=== PATIENT | female | born 1990 | race African-American/Black ===

== ENCOUNTER 2016-05-09 20:54 | Emergency (ER) | payer OTHER ==
[~2016-05-09] VITALS: Ht 162.6 cm; Wt 68.0 kg
[~2016-05-09 20:54] MED LIST: NKM; ROBAXIN-750750 MG PO
[2016-05-09 21:05] VITALS: BP 142/88
[2016-05-09] MEDS ORDERED: Phenazopyridine 200mg tab ORAL ONE (21:15)
--- NOTE | 2016-05-09 21:24 | Emergency Room Report ---
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 She felt a strain in her right shoulder with increased pain. She's had a history of tendinitis in her past. The pain radiates around to her back and slightly up towards the neck. She denies any numbness. The pain is 9/10. Worsened when she moves her arm. 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 She drove herself here. No fevers, chest pain, dyspnea, NVD, neck pain. Allergies: Coded Allergies: PENICILLINS (Verified Allergy, rash, 08/28/12) Patient History Past Medical History: see triage record Social History: Denies: smoking Social History Narrative patient care Last Menstrual Period: 05/09/2016 Now: No : 0 Para: 0 Nursing Documentation-PMH Past Medical History: No Stated History Review of Systems All Other Systems: negative except mentioned in HPI Physical Exam Vital Signs Date Time Temp Pulse Resp B/P Pulse Ox O2 Delivery O2 Flow Rate FiO2 05/09/16 20:56 98.1 84 16 142/88 100 Room Air Sp02 EP Interpretation: reviewed, normal General Appearance: well appearing, no apparent distress, GCS 15 Head: normocephalic, atraumatic Eyes: bilateral eye PERRL, bilateral eye normal inspection ENT: hearing grossly normal, normal voice Neck: full range of motion, supple Respiratory: chest non-tender, no respiratory distress, speaking full sentences Cardiovascular #2: 2+ radial (R) Musculoskeletal: decreased range of mation - R shoulder - unable to lift to breast height or adduct. No elbow tenderness. No deformity. No AC joint pain Neurologic: alert, motor strength/tone normal, DTRs symmetric, sensory intact, normal gait, speech normal Psychiatric: mood/affect normal Reflexes: 2+ bicep (R) Skin: no rash Medical Decision Making Diagnostic Impression: Primary Impression: Right shoulder strain Qualified Codes: S46.911A - Strain of unspecified muscle, fascia and tendon at shoulder and upper arm level, right arm, initial encounter ER Course Patient presents with R shoulder pain. Ddx; sprain, strain, bursitis. Exam against fx or dislocation. Some suggestion of rotator cuff issue. Needs analgesia. X rays not indicated due to mechanism of injury and exam. Sling applied by tech. Position good and neurovasc normal per my exam. Improved with sling. Improved with treatment. Insisting on time off of work instead of limited work. Patient stable for outpatient observation and treatment. Last Vital Signs Date Time Temp Pulse Resp B/P Pulse Ox O2 Delivery O2 Flow Rate FiO2 05/09/16 22:04 98.1 84 16 142/88 100 Room Air Status: improved Disposition: HOME, SELF-CARE Condition: Improved Scripts Tramadol Hcl* (ULTRAM*) 50 Mg Tablet 50 MG ORAL Q6H Y for For Pain, #10 TAB 0 Refills Prov: Samson Emanuel M.D. 05/09/16 Ibuprofen* (MOTRIN*) 600 Mg Tablet 600 MG ORAL Q6H Y for For Pain, #20 TAB Prov: Samson Emanuel M.D. 05/09/16 Samson Emanuel M.D. May 09, 2016 21:24
[2016-05-09] MEDS ORDERED: TRAMADOL HCL50 MG ORAL (21:26)
[2016-05-09] MEDS ORDERED: IBUPROFEN600 MG ORAL (21:26)
[2016-05-09] MEDS ORDERED: Ketorolac 60mg Inj IM ONE (21:30)
[2016-05-09 22:04] VITALS: BP 142/88
== END 2016-05-09 22:05 | disposition home or self-care (01) ==
LOC: EMR 21:15
DX: S46.911A Strain of unspecified muscle, fascia and tendon at shoulder and upper arm level, right arm, initial encounter (principal); X58.XXXA Exposure to other specified factors, initial encounter; Y93.9 Activity, unspecified; Y92.9 Unspecified place or not applicable; Z88.0 Allergy status to penicillin
CPT/HCPCS: 29240; 96372; 99283

== ENCOUNTER 2016-08-07 12:41 | Emergency (ER) | payer OTHER ==
[~2016-08-07] VITALS: Ht 162.6 cm; Wt 68.0 kg
[~2016-08-07 12:41] MED LIST changes: +IBUPROFEN600 MG ORAL; +TRAMADOL HCL50 MG ORAL
[2016-08-07] MEDS ORDERED: [UNRECOGNIZED DRUG - REMARK] (12:47)
[2016-08-07] MEDS ORDERED: Ketorolac 60mg Inj IM ONE (13:00)
--- NOTE | 2016-08-07 13:06 | Emergency Room Report ---
History of Present Illness General Chief Complaint: Lower Back Pain or Injury Source: Patient Present Illness HPI 26 YO Female presents to the ED c/o Left-sided low back pain that shoots down the leg x 2 day(s), acute onset after strenuous activity. denies N/V/F/C , no hx of neoplastic disease. Denies trauma or fall. Patient denies paresthesias in the lower extremities she states that with certain movements or laying flat pain will shoot down into the left buttock intermittently. Denies erythema, bruising, or increased temperature.Denies abdominal pain, , dysuria, hematuria, or frequency. Denies numbness tingling or loss of sensation or gross motor movements of the extremities, incontinence of bowel or bladder. Denies CP , Palpitations, LOC, AMS, dizziness, Changes in Vision, Sensation, paresthesias , or a sudden severe headache. Allergies: Coded Allergies: PENICILLINS (Verified Allergy, rash, 08/28/12) Patient History Past Medical History: see triage record Past Surgical History: none Pertinent Family History: none Last Menstrual Period: 07/28/16 Now: No Reviewed Nursing Documentation: PMH: Agreed, PSxH: Agreed Nursing Documentation-PMH Past Medical History: No Stated History Review of Systems All Other Systems: negative except mentioned in HPI Physical Exam Vital Signs Date Time Temp Pulse Resp B/P Pulse Ox O2 Delivery O2 Flow Rate FiO2 08/07/16 12:43 98.2 80 16 143/84 100 Sp02 EP Interpretation: reviewed, normal General Appearance: no apparent distress, alert, GCS 15, non-toxic Head: normocephalic, atraumatic Eyes: bilateral eye PERRL, bilateral eye normal inspection ENT: hearing grossly normal, normal pharynx, no angioedema, normal voice Neck: full range of motion, supple/symm/no masses Respiratory: chest non-tender, lungs clear, normal breath sounds, speaking full sentences Cardiovascular #1: regular rate, rhythm, no edema Musculoskeletal: back normal, gait/station normal, normal range of motion, tender - left sided lumbar ttp, left upper gluteal ttp, FROM with pain, unable to tolerate lying flat or straight leg raise. Neurologic: alert, oriented x3, responsive, motor strength/tone normal, sensory intact, speech normal Psychiatric: judgement/insight normal, memory normal, mood/affect normal Skin: normal color, no rash, warm/dry, well hydrated Medical Decision Making PA Attestation Dr. Estrella is my supervising Physician whom patient management has been discussed with. Diagnostic Impression: Primary Impression: Low back pain with sciatica Qualified Codes: M54.42 - Lumbago with sciatica, left side ER Course Pt. presents to the ED c/o Left-sided low back pain that shoots down the leg x 2 day(s), acute onset after strenuous activity. denies N/V/F/C , no hx of neoplastic disease. Ddx considered but are not limited to Fracture, dislocation, contusion, epidural abscess, Sprain/Strain/Spasm Vital signs: are WNL, pt. is afebrile H&PE are most consistent with sciatica - Pt. unable to tolerate straight leg raise. ORDERS: X-ray not required at this time, no spinous process tenderness ED INTERVENTIONS: -IM Toradol 45mg. - 350mg Soma PO Re-Evaluation: pt. states her pain has subsided with ED interventions -I do not suspect an emergent condition at this time. with current presentation pt. is stable for close outpatient follow up. d/w pt. follow up instructions, and ED return precautions. DISCHARGE: At this time pt. is stable for d/c to home. Will provide printed patient care instructions, and any necessary prescriptions. Care plan and follow up instructions have been discussed with the patient prior to discharge. Last Vital Signs Date Time Temp Pulse Resp B/P Pulse Ox O2 Delivery O2 Flow Rate FiO2 08/07/16 12:43 98.2 80 16 143/84 100 Disposition: HOME, SELF-CARE Condition: Stable Departure Forms: Return to Work Return to Work Date: Aug 11, 2016 Work Restrictions: No Heavy Lifting, No Prolonged Standing Other Restrictions: light duty x 1 week. Return to Full Activity: Aug 18, 2016 Patient Instructions: Lumbosacral Strain Additional Instructions: Take medications as directed. Follow up with PCP in 3-5 days Return sooner to ED if new symptoms occur, or current symptoms become worse. Do not drink alcohol, drive, or operate heavy machinery while taking muscle relaxers as this may cause drowsiness. - Please note that this Emergency Department Report was dictated using [employer] consultant technology software, occasionally this can lead to erroneous entry secondary to interpretation by the dictation equipment. Sue Chaidez Aug 07, 2016 13:06
[2016-08-07] MEDS ORDERED: CYCLOBENZAPRINE10 MG ORAL (13:16)
[2016-08-07] MEDS ORDERED: IBUPROFEN600 MG ORAL (13:16)
[2016-08-07 13:36] VITALS: BP 139/83
== END 2016-08-07 13:37 | disposition home or self-care (01) ==
LOC: EMR 13:27
DX: M54.42 Lumbago with sciatica, left side (principal); Z88.0 Allergy status to penicillin
CPT/HCPCS: 96372; 99283

== ENCOUNTER 2016-11-10 12:10 | Emergency (ER) | payer OTHER ==
[~2016-11-10] VITALS: Ht 165.1 cm; Wt 59.0 kg
[~2016-11-10 12:10] MED LIST changes: +CYCLOBENZAPRINE10 MG ORAL; +[UNRECOGNIZED DRUG - REMARK]
--- NOTE | 2016-11-10 12:24 | Emergency Room Report ---
History of Present Illness General Chief Complaint: Upper Respiratory Illness Source: Patient (Sue Chaidez) Present Illness HPI 26-year-old female presents to the emergency department complaining of body aches, fevers, sore throat, dry cough, nasal congestion, and nausea since yesterday. Patient reports generalized malaise she denies chills. Reports moderate nasal congestion. Patient also reports intermittent 5/10 headache that is dull and progressive onset. Patient denies episodes of vomiting. She has been around many ill persons. Patient states she is up-to-date with vaccinations. Denies abdominal pain denies abdominal tenderness denies rash. Denies neck pain or stiffness. Patient states she's been taking Tylenol for fevers. Denies CP, Palpitations, LOC, AMS, dizziness, Changes in Vision, Sensation, paresthesias, or a sudden severe headache. (Sue Chaidez) Allergies: Coded Allergies: PENICILLINS (Verified Allergy, rash, 08/28/12) Patient History Past Medical History: see triage record Past Surgical History: none Pertinent Family History: none Now: No Immunizations: UTD Reviewed Nursing Documentation: PMH: Agreed, PSxH: Agreed (Sue Chaidez) Nursing Documentation-PMH Past Medical History: No Stated History (Sue Chaidez) Review of Systems All Other Systems: negative except mentioned in HPI (Sue Chaidez) Physical Exam Vital Signs Date Time Temp Pulse Resp B/P (MAP) Pulse Ox O2 Delivery O2 Flow Rate FiO2 11/10/16 12:18 98.2 86 18 120/80 98 Room Air Sp02 EP Interpretation: reviewed, normal General Appearance: no apparent distress, alert, GCS 15, non-toxic Head: normocephalic, atraumatic Eyes: bilateral eye normal inspection, bilateral eye PERRL ENT: hearing grossly normal, normal pharynx, normal voice, TMs + canals normal , uvula midline, moist mucus membranes, nasal congestion, pharyngeal erythema Neck: full range of motion, no meningismus, no bony tend, supple/symm/no masses Respiratory: lungs clear, normal breath sounds, no wheezing, speaking full sentences Cardiovascular #1: regular rate, rhythm Gastrointestinal: normal bowel sounds, non tender, soft, no guarding, no rebound Rectal: deferred Genitourinary: normal inspection, no CVA tenderness Musculoskeletal: gait/station normal, normal range of motion, non-tender Neurologic: alert, oriented x3, responsive, motor strength/tone normal, sensory intact, speech normal Psychiatric: judgement/insight normal, memory normal, mood/affect normal Skin: normal color, no rash, warm/dry, well hydrated Lymphatic: no adenopathy (Sue Chaidez) Medical Decision Making PA Attestation Dr. Nunez is my supervising Physician whom patient management has been discussed with. (Sue Chaidez) Diagnostic Impression: Primary Impression: Upper respiratory infection Qualified Codes: J06.9 - Acute upper respiratory infection, unspecified; B97.89 - Other viral agents as the cause of diseases classified elsewhere Additional Impressions: Gastritis Qualified Codes: K29.00 - Acute gastritis without bleeding UTI (urinary tract infection) Qualified Codes: N30.00 - Acute cystitis without hematuria ER Course 26-year-old female presents to the emergency department complaining of body aches, fevers, sore throat, dry cough, nasal congestion, and nausea since yesterday. Patient reports generalized malaise she denies chills. Reports moderate nasal congestion. Patient also reports intermittent 5/10 headache that is dull and progressive onset. Patient denies episodes of vomiting. She has been around many ill persons. Patient states she is up-to-date with vaccinations. Denies abdominal pain denies abdominal tenderness denies rash. Denies neck pain or stiffness. Patient states she's been taking Tylenol for fevers. Denies CP, Palpitations, LOC, AMS, dizziness, Changes in Vision, Sensation, paresthesias, or a sudden severe headache. Ddx considered but are not limited to URI, pneumonia, PE, strep pharyngitis, meningitis., Viral GE, just to name a few Vital signs: Pt. is afebrile, the remaining VS are WNL H&PE are most consistent with Viral syndrome - no meningeal signs, oropharynx is not involved, no evidence of bacterial infection at this time. Will check urine for UTI and due to nausea and STERLING's. ORDERS: -UA: NItrite positive, moderate bacteria and elevated leukocytes indicating UTI. -Urine Hcg: Negative ED INTERVENTIONS: None required at this time. DISCHARGE: At this time pt. is stable for d/c to home. Will provide printed patient care instructions, and any necessary prescriptions. Care plan and follow up instructions have been discussed with the patient prior to discharge. Labs Test 11/10/16 12:36 Urine Color Yellow Urine Appearance Slightly cloudy Urine pH 5 (4.5-8.0) Urine Specific [place] 1.020 (1.005-1.035) Urine Protein 1+ (NEGATIVE) Urine Glucose (UA) Negative (NEGATIVE) Urine Ketones Negative (NEGATIVE) Urine Occult Blood 5+ (NEGATIVE) Urine Nitrite Positive (NEGATIVE) Urine Bilirubin Negative (NEGATIVE) Urine Urobilinogen Normal MG/DL (0.0-1.0) Urine Leukocyte Esterase 2+ (NEGATIVE) Urine RBC 15-20 /HPF (0 - 2) Urine WBC 2-4 /HPF (0 - 2) Urine Squamous Epithelial Cells Few /LPF (NONE/OCC) Urine Bacteria Moderate /HPF (NONE) Urine HCG, Qualitative Negative (Sue Chaidez P.AMilady) ER Course Culture growing Escherichia coli, sensitive to Macrobid, already prescribed to the patient (Oleksandr Nunez M.D.) Last Vital Signs Date Time Temp Pulse Resp B/P (MAP) Pulse Ox O2 Delivery O2 Flow Rate FiO2 11/10/16 12:18 98.2 86 18 120/80 98 Room Air (Sue Chaidez.Juice) Disposition: HOME, SELF-CARE Condition: Stable Scripts Nitrofurantoin Monohyd/M-Cryst* (MACROBID 100 MG*) 100 Mg Capsule 100 MG ORAL EVERY 12 HOURS for 5 Days, #10 CAP Prov: Sue Chaidez 11/10/16 Acetaminophen* (TYLENOL EXTRA STRENGTH*) 500 Mg Tablet 500 MG ORAL Q6H Y for Mild Pain/Temp > 100.5, #20 TAB 0 Refills Prov: Sue Chaidez.AMilady 11/10/16 Pseudoephedrine Hcl* (NEXAFED*) 30 Mg Tablet 30 MG ORAL Q6H Y for congestion, #20 TAB Prov: Sue Chaidez P.A. 11/10/16 Guaifenesin (Guaifenesin) 1,200 Mg Tab.er.12h 1200 MG PO BID for 10 Days, #20 TAB Prov: Sue Chaidez.AMilady 11/10/16 Ondansetron Odt* (ZOFRAN ODT*) 4 Mg Tab.rapdis 4 MG ORAL Q6H Y for Nausea & Vomiting, #20 TAB Prov: Sue Chaidez 11/10/16 Codeine/Promethazine Hcl* (PROMETHAZINE-CODEINE SYRUP*) 118 Ml Syrup 5 ML ORAL Q6H Y for For Cough, #118 ML 0 Refills Prov: Sue Chaidez 11/10/16 Patient Instructions: Upper Respiratory Infection, Adult Additional Instructions: Take medications as directed. Follow up with a Primary Care Provider in 3-5 days, even if your symptoms have resolved. --Please review list of primary care clinics, if you do not already have a primary care provider Return sooner to ED if new symptoms occur, or current symptoms become worse. Do not drink alcohol, drive, or operate heavy machinery while taking cough syrup as this may cause drowsiness. - Please note that this Emergency Department Report was dictated using [employer] floor [employer]ander technology software, occasionally this can lead to erroneous entry secondary to interpretation by the dictation equipment. Sue Chaidez Nov 10, 2016 12:24 Oleksandr Nunez M.D. Nov 13, 2016 04:47
[2016-11-10 12:45] VITALS: BP 122/83
[2016-11-10 13:03] LABS: KETONES,URINE NEGATIVE (NEGATIVE); LEUKOCYTE ESTERASE ,URINE 2+ (NEGATIVE); NITRITE,URINE POSITIVE (NEGATIVE); PH,URINE 5 (4.5-8.0); PROTEIN,URINE 1+ (NEGATIVE); UROBILINOGEN,URINE NORMAL MG/DL (0.0-1.0)
[2016-11-10] MEDS ORDERED: GUAIFENESIN1200 MG PO (13:12)
[2016-11-10] MEDS ORDERED: ZOFRAN ODT4 MG ORAL (13:12)
[2016-11-10] MEDS ORDERED: NEXAFED30 MG ORAL (13:12)
[2016-11-10] MEDS ORDERED: PROMETHAZINE-C118 M1 ORAL (13:12)
[2016-11-10] MEDS ORDERED: TYLENOL EXTRA500 MG ORAL (13:12)
[2016-11-10 13:13] LABS: APPEARANCE,URINE SLIGHTLY CLOUDY; BACTERIA,URINE MODERATE /HPF; RBC,URINE 15-20 /HPF (0 - 2); SQUAMOUS EPITHELIAL CELL,UR FEW /LPF (NONE/OCC)
[2016-11-10] MEDS ORDERED: NITROFURANTOIN100 M2 ORAL (13:26)
[2016-11-10 13:44] VITALS: BP 122/83
== END 2016-11-10 13:45 | disposition home or self-care (01) ==
LOC: EMR 12:50
DX: J06.9 Acute upper respiratory infection, unspecified (principal); K29.00 Acute gastritis without bleeding; N30.00 Acute cystitis without hematuria; R51 Headache; Z88.0 Allergy status to penicillin
CPT/HCPCS: 81003; 81025; 87086; 87181; 99284

== ENCOUNTER 2017-01-02 06:57 | Emergency (ER) | payer OTHER ==
[~2017-01-02] VITALS: Ht 162.6 cm; Wt 71.7 kg
[~2017-01-02 06:57] MED LIST changes: +GUAIFENESIN1200 MG PO; +NEXAFED30 MG ORAL; +NITROFURANTOIN100 M2 ORAL; +PROMETHAZINE-C118 M1 ORAL; +TYLENOL EXTRA500 MG ORAL; +ZOFRAN ODT4 MG ORAL
[2017-01-02 07:36] VITALS: BP 126/82
[2017-01-02 07:52] LABS: APPEARANCE,URINE CLOUDY; BILIRUBIN, URINE NEGATIVE (NEGATIVE); COLOR,URINE PALE YELLOW; GLUCOSE, URINE (UA) NEGATIVE (NEGATIVE); KETONES,URINE NEGATIVE (NEGATIVE); LEUKOCYTE ESTERASE ,URINE 3+ (NEGATIVE); NITRITE,URINE NEGATIVE (NEGATIVE); PH,URINE 7 (4.5-8.0); PROTEIN,URINE 1+ (NEGATIVE); UROBILINOGEN,URINE NORMAL MG/DL (0.0-1.0)
[2017-01-02] MEDS ORDERED: METROGEL-VAGINA70 G1 VAGIN (07:58)
[2017-01-02 08:13] VITALS: BP 126/82
--- NOTE | 2017-01-02 09:15 | Emergency Room Report ---
History of Present Illness General Chief Complaint: Vaginal Source: Patient Present Illness HPI Patient presents with complaints of vaginal discharge she reports a kelly discharge There is a somewhat foul smell to it as well Patient felt that it was possibly yeast infection Treatment for that has not improved her symptoms Patient is sexually active Has one partner Denies any pelvic pain denies any dysuria frequency Denies any fevers or chills Allergies: Coded Allergies: PENICILLINS (Verified Allergy, rash, 08/28/12) Patient History Past Medical History: see triage record Pertinent Family History: none Last Menstrual Period: Dec Reviewed Nursing Documentation: PMH: Agreed, PSxH: Agreed Nursing Documentation-PMH Past Medical History: No Stated History Review of Systems All Other Systems: negative except mentioned in HPI Physical Exam Vital Signs Date Time Temp Pulse Resp B/P (MAP) Pulse Ox O2 Delivery O2 Flow Rate FiO2 01/02/17 07:04 97.9 83 16 126/82 98 Room Air Sp02 EP Interpretation: reviewed, normal General Appearance: well appearing, no apparent distress Head: normocephalic, atraumatic Eyes: bilateral eye PERRL, bilateral eye EOMI ENT: hearing grossly normal, normal pharynx, TMs + canals normal, uvula midline Neck: full range of motion, supple, no meningismus, no bony tend Respiratory: lungs clear, normal breath sounds, no rhonchi, no respiratory distress, no retraction, no accessory muscle use Cardiovascular #1: normal peripheral pulses, regular rate, rhythm, no edema, no gallop, no JVD, no murmur Gastrointestinal: normal bowel sounds, non tender, soft, no mass, no organomegaly, non-distended, no guarding, no hernia, no pulsatile mass, no rebound Genitourinary: no CVA tenderness, other - Pelvic exam with speculum reveals grayish discharge, no other laceration or retained products is seen Neurologic: oriented x3, responsive, community service coordinator III-XII nml as tested, motor strength/ tone normal, sensory intact Psychiatric: mood/affect normal Skin: normal color, no rash, warm/dry, palpation normal Lymphatic: normal inspection, no adenopathy Medical Decision Making Diagnostic Impression: Primary Impression: vaginitis ER Course Patient has clinical exam and evaluation in line with likely vaginitis Patient requires gynecology followup for further culture and outpatient reevaluation At this time patient symptomatically treated for this clinical finding And will have close followup Labs Test 01/02/17 07:10 Urine Color Pale yellow Urine Appearance Cloudy Urine pH 7 (4.5-8.0) Urine Specific [place] 1.010 (1.005-1.035) Urine Protein 1+ (NEGATIVE) Urine Glucose (UA) Negative (NEGATIVE) Urine Ketones Negative (NEGATIVE) Urine Occult Blood 1+ (NEGATIVE) Urine Nitrite Negative (NEGATIVE) Urine Bilirubin Negative (NEGATIVE) Urine Urobilinogen Normal MG/DL (0.0-1.0) Urine Leukocyte Esterase 3+ (NEGATIVE) Urine RBC 20-30 /HPF (0 - 2) Urine WBC 60-80 /HPF (0 - 2) Urine Squamous Epithelial Cells Few /LPF (NONE/OCC) Urine Bacteria Moderate /HPF (NONE) Urine Trichomonas Few /HPF (NONE) Urine HCG, Qualitative Negative Last Vital Signs Date Time Temp Pulse Resp B/P (MAP) Pulse Ox O2 Delivery O2 Flow Rate FiO2 01/02/17 08:13 97.9 16 126/82 98 Room Air 01/02/17 07:04 83 Status: improved Disposition: HOME, SELF-CARE Condition: Stable Scripts Metronidazole* (METROGEL-VAGINAL*) 70 Gm Gel.w.appl 1 APPL VAGIN EVERY 12 HOURS, #70 GM Prov: GALINA BETANCOURT D.O. 01/02/17 Referrals: [facility],REFERRING (PCP) Patient Instructions: Vaginitis, [id number] Additional Instructions: Patient is provided with the discharge instructions notified to follow up with primary doctor in the next 2-3 days otherwise return to the er with any worsening symptoms. Please note that this report is being documented using [employer] technology. This can lead to erroneous entry secondary to incorrect interpretation by the dictating instrument. GALINA BETANCOURT D.O. Jan 02, 2017 09:15
--- NOTE | 2017-01-02 09:15 | Emergency Room Report ---
History of Present Illness General Chief Complaint: Vaginal Source: Patient Present Illness HPI Patient presents with complaints of vaginal discharge she reports a kelly discharge There is a somewhat foul smell to it as well Patient felt that it was possibly yeast infection Treatment for that has not improved her symptoms Patient is sexually active Has one partner Denies any pelvic pain denies any dysuria frequency Denies any fevers or chills Allergies: Coded Allergies: PENICILLINS (Verified Allergy, rash, 08/28/12) Patient History Past Medical History: see triage record Pertinent Family History: none Last Menstrual Period: Dec Reviewed Nursing Documentation: PMH: Agreed, PSxH: Agreed Nursing Documentation-PMH Past Medical History: No Stated History Review of Systems All Other Systems: negative except mentioned in HPI Physical Exam Vital Signs Date Time Temp Pulse Resp B/P (MAP) Pulse Ox O2 Delivery O2 Flow Rate FiO2 01/02/17 07:04 97.9 83 16 126/82 98 Room Air Sp02 EP Interpretation: reviewed, normal General Appearance: well appearing, no apparent distress Head: normocephalic, atraumatic Eyes: bilateral eye PERRL, bilateral eye EOMI ENT: hearing grossly normal, normal pharynx, TMs + canals normal, uvula midline Neck: full range of motion, supple, no meningismus, no bony tend Respiratory: lungs clear, normal breath sounds, no rhonchi, no respiratory distress, no retraction, no accessory muscle use Cardiovascular #1: normal peripheral pulses, regular rate, rhythm, no edema, no gallop, no JVD, no murmur Gastrointestinal: normal bowel sounds, non tender, soft, no mass, no organomegaly, non-distended, no guarding, no hernia, no pulsatile mass, no rebound Genitourinary: no CVA tenderness, other - Pelvic exam with speculum reveals grayish discharge, no other laceration or retained products is seen Neurologic: oriented x3, responsive, health safety specialist III-XII nml as tested, motor strength/ tone normal, sensory intact Psychiatric: mood/affect normal Skin: normal color, no rash, warm/dry, palpation normal Lymphatic: normal inspection, no adenopathy Medical Decision Making Diagnostic Impression: Primary Impression: vaginitis ER Course Patient has clinical exam and evaluation in line with likely vaginitis Patient requires gynecology followup for further culture and outpatient reevaluation At this time patient symptomatically treated for this clinical finding And will have close followup Labs Test 01/02/17 07:10 Urine Color Pale yellow Urine Appearance Cloudy Urine pH 7 (4.5-8.0) Urine Specific [place] 1.010 (1.005-1.035) Urine Protein 1+ (NEGATIVE) Urine Glucose (UA) Negative (NEGATIVE) Urine Ketones Negative (NEGATIVE) Urine Occult Blood 1+ (NEGATIVE) Urine Nitrite Negative (NEGATIVE) Urine Bilirubin Negative (NEGATIVE) Urine Urobilinogen Normal MG/DL (0.0-1.0) Urine Leukocyte Esterase 3+ (NEGATIVE) Urine RBC 20-30 /HPF (0 - 2) Urine WBC 60-80 /HPF (0 - 2) Urine Squamous Epithelial Cells Few /LPF (NONE/OCC) Urine Bacteria Moderate /HPF (NONE) Urine Trichomonas Few /HPF (NONE) Urine HCG, Qualitative Negative Last Vital Signs Date Time Temp Pulse Resp B/P (MAP) Pulse Ox O2 Delivery O2 Flow Rate FiO2 01/02/17 08:13 97.9 16 126/82 98 Room Air 01/02/17 07:04 83 Status: improved Disposition: HOME, SELF-CARE Condition: Stable Scripts Metronidazole* (METROGEL-VAGINAL*) 70 Gm Gel.w.appl 1 APPL VAGIN EVERY 12 HOURS, #70 GM Prov: GALINA BETANCOURT D.O. 01/02/17 Referrals: [facility]REFERRING (PCP) Patient Instructions: Vaginitis, [id number] Additional Instructions: Patient is provided with the discharge instructions notified to follow up with primary doctor in the next 2-3 days otherwise return to the er with any worsening symptoms. Please note that this report is being documented using [employer] technology. This can lead to erroneous entry secondary to incorrect interpretation by the dictating instrument. GALINA BETANCOURT D.O. Jan 02, 2017 09:15
--- NOTE | 2017-01-02 09:15 | Emergency Room Report ---
History of Present Illness General Chief Complaint: Vaginal Source: Patient Present Illness HPI Patient presents with complaints of vaginal discharge she reports a kelly discharge There is a somewhat foul smell to it as well Patient felt that it was possibly yeast infection Treatment for that has not improved her symptoms Patient is sexually active Has one partner Denies any pelvic pain denies any dysuria frequency Denies any fevers or chills Allergies: Coded Allergies: PENICILLINS (Verified Allergy, rash, 08/28/12) Patient History Past Medical History: see triage record Pertinent Family History: none Last Menstrual Period: Dec Reviewed Nursing Documentation: PMH: Agreed, PSxH: Agreed Nursing Documentation-PMH Past Medical History: No Stated History Review of Systems All Other Systems: negative except mentioned in HPI Physical Exam Vital Signs Date Time Temp Pulse Resp B/P (MAP) Pulse Ox O2 Delivery O2 Flow Rate FiO2 01/02/17 07:04 97.9 83 16 126/82 98 Room Air Sp02 EP Interpretation: reviewed, normal General Appearance: well appearing, no apparent distress Head: normocephalic, atraumatic Eyes: bilateral eye PERRL, bilateral eye EOMI ENT: hearing grossly normal, normal pharynx, TMs + canals normal, uvula midline Neck: full range of motion, supple, no meningismus, no bony tend Respiratory: lungs clear, normal breath sounds, no rhonchi, no respiratory distress, no retraction, no accessory muscle use Cardiovascular #1: normal peripheral pulses, regular rate, rhythm, no edema, no gallop, no JVD, no murmur Gastrointestinal: normal bowel sounds, non tender, soft, no mass, no organomegaly, non-distended, no guarding, no hernia, no pulsatile mass, no rebound Genitourinary: no CVA tenderness, other - Pelvic exam with speculum reveals grayish discharge, no other laceration or retained products is seen Neurologic: oriented x3, 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, 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, motor strength/ tone normal, sensory intact Psychiatric: mood/affect normal Skin: normal color, no rash, warm/dry, palpation normal Lymphatic: normal inspection, no adenopathy Medical Decision Making Diagnostic Impression: Primary Impression: vaginitis ER Course Patient has clinical exam and evaluation in line with likely vaginitis Patient requires gynecology followup for further culture and outpatient reevaluation At this time patient symptomatically treated for this clinical finding And will have close followup Labs Test 01/02/17 07:10 Urine Color Pale yellow Urine Appearance Cloudy Urine pH 7 (4.5-8.0) Urine Specific [place] 1.010 (1.005-1.035) Urine Protein 1+ (NEGATIVE) Urine Glucose (UA) Negative (NEGATIVE) Urine Ketones Negative (NEGATIVE) Urine Occult Blood 1+ (NEGATIVE) Urine Nitrite Negative (NEGATIVE) Urine Bilirubin Negative (NEGATIVE) Urine Urobilinogen Normal MG/DL (0.0-1.0) Urine Leukocyte Esterase 3+ (NEGATIVE) Urine RBC 20-30 /HPF (0 - 2) Urine WBC 60-80 /HPF (0 - 2) Urine Squamous Epithelial Cells Few /LPF (NONE/OCC) Urine Bacteria Moderate /HPF (NONE) Urine Trichomonas Few /HPF (NONE) Urine HCG, Qualitative Negative Last Vital Signs Date Time Temp Pulse Resp B/P (MAP) Pulse Ox O2 Delivery O2 Flow Rate FiO2 01/02/17 08:13 97.9 16 126/82 98 Room Air 01/02/17 07:04 83 Status: improved Disposition: HOME, SELF-CARE Condition: Stable Scripts Metronidazole* (METROGEL-VAGINAL*) 70 Gm Gel.w.appl 1 APPL VAGIN EVERY 12 HOURS, #70 GM Prov: GALINA BETANCOURT D.O. 01/02/17 Referrals: [facility],REFERRING (PCP) Patient Instructions: Vaginitis, [id number] Additional Instructions: Patient is provided with the discharge instructions notified to follow up with primary doctor in the next 2-3 days otherwise return to the er with any worsening symptoms. Please note that this report is being documented using [employer] technology. This can lead to erroneous entry secondary to incorrect interpretation by the dictating instrument. GALINA BETANCOURT D.O. Jan 02, 2017 09:15
== END 2017-01-02 08:15 | disposition home or self-care (01) ==
LOC: EMR 07:23
DX: N76.0 Acute vaginitis (principal); Z88.0 Allergy status to penicillin
CPT/HCPCS: 81003; 81025; 87086; 99283

== ENCOUNTER 2017-03-20 11:15 | Emergency (ER) | payer OTHER ==
[~2017-03-20] VITALS: Ht 162.6 cm; Wt 71.2 kg
[~2017-03-20 11:15] MED LIST changes: +METROGEL-VAGINA70 G1 VAGIN
--- NOTE | 2017-03-20 11:54 | Emergency Room Report ---
History of Present Illness General Chief Complaint: General Complaint Source: Patient, Medical Record Present Illness HPI Healthy adult female presents with missed period Denies vaginal bleeding, discharge, abdominal pain, urinary complaints LMP was January 24 week To home tests and was positive Wanted to check again Has an [employer] that she wants to followup with Just came to make sure she was Allergies: Coded Allergies: PENICILLINS (Verified Allergy, rash, 08/28/12) Patient History Past Medical History: see triage record Past Surgical History: none Last Menstrual Period: 01/23/17 Reviewed Nursing Documentation: PMH: Agreed, PSxH: Agreed Nursing Documentation-PMH Past Medical History: No History, Except For Review of Systems All Other Systems: negative except mentioned in HPI Physical Exam Vital Signs Date Time Temp Pulse Resp B/P (MAP) Pulse Ox O2 Delivery O2 Flow Rate FiO2 03/20/17 11:35 98.2 94 18 127/82 95 Room Air Sp02 EP Interpretation: reviewed, normal General Appearance: no apparent distress, alert, non-toxic Head: normocephalic Eyes: bilateral eye normal inspection, bilateral eye PERRL, bilateral eye EOMI ENT: normal ENT inspection, hearing grossly normal, normal pharynx, no angioedema, normal voice, moist mucus membranes Neck: normal inspection, full range of motion, supple, supple/symm/no masses Respiratory: chest non-tender, lungs clear, normal breath sounds, chest symmetrical, palpation of chest normal Cardiovascular #1: normal peripheral pulses, regular rate, rhythm Cardiovascular #2: 2+ radial (R), 2+ radial (L) Gastrointestinal: normal inspection, non tender, soft, no mass, no guarding, no rebound Rectal: deferred Genitourinary: normal inspection, no CVA tenderness Musculoskeletal: back normal, gait/station normal, normal range of motion, non- tender, no calf tenderness Neurologic: alert, 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, 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, motor strength/tone normal, sensory intact, speech normal Psychiatric: judgement/insight normal, memory normal, mood/affect normal, no suicidal/homicidal ideation Skin: normal color, no rash, warm/dry, normal turgor Lymphatic: no adenopathy Medical Decision Making Diagnostic Impression: Primary Impression: ER Course Patient with no complaints will be discharged diagnosis Last Vital Signs Date Time Temp Pulse Resp B/P (MAP) Pulse Ox O2 Delivery O2 Flow Rate FiO2 03/20/17 11:35 98.2 94 18 127/82 95 Room Air Status: improved Disposition: HOME, SELF-CARE Condition: Stable Patient Instructions: and Sex MIAN RODRIGUEZ M.D Mar 20, 2017 11:54
[2017-03-20 12:12] VITALS: BP 127/82
== END 2017-03-20 13:00 | disposition home or self-care (01) ==
LOC: EMR 12:15
DX: Z34.91 Encounter for supervision of normal pregnancy, unspecified, first trimester (principal); Z88.0 Allergy status to penicillin
CPT/HCPCS: 81025; 99282

== ENCOUNTER 2017-07-15 08:52 | Emergency (ER) | payer OTHER, MEDICAID ==
[~2017-07-15] VITALS: Ht 162.6 cm; Wt 71.2 kg
[2017-07-15 09:18] LABS: APPEARANCE,URINE CLEAR; BILIRUBIN, URINE NEGATIVE (NEGATIVE); COLOR,URINE PALE YELLOW; GLUCOSE, URINE (UA) NEGATIVE (NEGATIVE); KETONES,URINE NEGATIVE (NEGATIVE); LEUKOCYTE ESTERASE ,URINE 1+ (NEGATIVE); NITRITE,URINE NEGATIVE (NEGATIVE); PH,URINE 7 (4.5-8.0); PROTEIN,URINE NEGATIVE (NEGATIVE); UROBILINOGEN,URINE NORMAL MG/DL (0.0-1.0)
[2017-07-15 10:00] VITALS: BP 132/84
[2017-07-15] MEDS ORDERED: metroNIDAZOLE 500mg tab ORAL ONE (10:00)
--- NOTE | 2017-07-15 10:42 | Emergency Room Report ---
History of Present Illness General Chief Complaint: Female Urogenital Problems Source: Patient Present Illness [facility] The patient presents with a clear vaginal discharge. In the past she had bacterial vaginosis and was treated with Flagyl for the same problem. Cleared up at that time. Her last period was normal. No dysuria. No fevers, chills. No suprapubic pain. No NVD. No URI sy, dyspnea, chest pain, rashes, headache, anxiety. The patient had a miscarriage in February. Allergies: Coded Allergies: PENICILLINS (Verified Allergy, rash, 08/28/12) Patient History Past Surgical History: unable to obtain Social History: Denies: smoking Social History Narrative [employer] Last Menstrual Period: 06/27/17 Reviewed Nursing Documentation: PMH: Agreed; PSxH: Agreed Nursing Documentation-PMH Past Medical History: No Stated History Review of Systems All Other Systems: negative except mentioned in HPI Physical Exam Vital Signs Date Time Temp Pulse Resp B/P (MAP) Pulse Ox O2 Delivery O2 Flow Rate FiO2 07/15/17 08:54 98.3 83 18 132/84 99 Room Air 98.2 Sp02 EP Interpretation: reviewed, normal General Appearance: well appearing, no apparent distress Head: normocephalic, atraumatic Eyes: bilateral eye normal inspection, bilateral eye PERRL ENT: hearing grossly normal, normal voice, moist mucus membranes Neck: full range of motion, supple Respiratory: no respiratory distress, speaking full sentences Gastrointestinal: normal inspection, normal bowel sounds, non tender Genitourinary: no CVA tenderness, adnexa normal, cervix normal, ext genitalia/ vag normal, os closed, uterus normal, other - some d/c, yellowish Musculoskeletal: no calf tenderness Neurologic: alert, normal gait, grossly normal Psychiatric: mood/affect normal Skin: no rash Medical Decision Making Diagnostic Impression: Primary Impression: Bacterial vaginosis ER Course Patient presents with vaginal d/c. Ddx; BV, trichomonas, UTI, yeast amongst others. Will send wet mount and UA. UA clear. Wet mount with clue cells. Patient started on Flagyl. Patient stable for outpatient observation and treatment. Laboratory Tests Test 07/15/17 09:07 Urine Color Pale yellow Urine Appearance Clear Urine pH 7 (4.5-8.0) Urine Specific [place] 1.010 (1.005-1.035) Urine Protein Negative (NEGATIVE) Urine Glucose (UA) Negative (NEGATIVE) Urine Ketones Negative (NEGATIVE) Urine Occult Blood Negative (NEGATIVE) Urine Nitrite Negative (NEGATIVE) Urine Bilirubin Negative (NEGATIVE) Urine Urobilinogen Normal MG/DL (0.0-1.0) Urine Leukocyte Esterase 1+ (NEGATIVE) H Urine RBC 0-2 /HPF (0 - 2) Urine WBC 0-2 /HPF (0 - 2) Urine Squamous Epithelial Cells Few /LPF (NONE/OCC) Urine Bacteria Few /HPF (NONE) Urine HCG, Qualitative Negative (NEGATIVE) Microbiology Date/Time Source Procedure Growth Status 07/15/17 10:00 Vaginal Wet Prep - Final Complete Last Vital Signs Date Time Temp Pulse Resp B/P (MAP) Pulse Ox O2 Delivery O2 Flow Rate FiO2 07/15/17 15:58 98.3 80 18 132/84 99 Room Air 98.2 Status: improved Disposition: HOME, SELF-CARE Condition: Improved Scripts Metronidazole* (FLAGYL*) 500 Mg Tablet 500 MG ORAL BID, #14 TAB Prov: Samson Emanuel M.D. 07/15/17 Referrals: [facility],REFERRING (PCP) Samson Emanuel M.D. July 15, 2017 10:41
[2017-07-15] MEDS ORDERED: METRONIDAZOLE500 MG ORAL (10:44)
[2017-07-15 15:58] VITALS: BP 132/84
== END 2017-07-15 10:05 | disposition home or self-care (01) ==
LOC: EMR 09:13
DX: N76.0 Acute vaginitis (principal); B96.89 Other specified bacterial agents as the cause of diseases classified elsewhere
CPT/HCPCS: 81003; 81025; 87210; 99282

== ENCOUNTER 2017-11-12 12:16 | Emergency (ER) | payer OTHER, MEDICAID ==
[~2017-11-12] VITALS: Ht 162.6 cm; Wt 66.7 kg
[~2017-11-12 12:16] MED LIST changes: +METRONIDAZOLE500 MG ORAL
[2017-11-12 12:22] VITALS: BP 126/83
--- NOTE | 2017-11-12 12:36 | Emergency Room Report ---
History of Present Illness General Chief Complaint: General Complaint Source: Patient Present Illness HPI 27-year-old female presents to the emergency department complaining of bilateral out of 10 in severity bilateral nasal congestion 2 days. Patient reports procedures sensation to the front of her face. Patient denies fevers, chills, cough, sore throat, recent respiratory illness. Patient reports some pressure in the bilateral ears as well with muffled hearing. Patient denies ear discharge, ear pain or complete loss of her hearing. She denies dizziness, neck pain or stiffness, photophobia or sudden onset headache. Allergies: Coded Allergies: PENICILLINS (Verified Allergy, rash, 08/28/12) Patient History Past Medical History: see triage record Past Surgical History: none Pertinent Family History: none Last Menstrual Period: 11/05/2017 Immunizations: UTD Reviewed Nursing Documentation: PMH: Agreed; PSxH: Agreed Nursing Documentation-PMH Past Medical History: No Stated History Review of Systems All Other Systems: negative except mentioned in HPI Physical Exam Vital Signs Date Time Temp Pulse Resp B/P (MAP) Pulse Ox O2 Delivery O2 Flow Rate FiO2 11/12/17 12:21 97.8 82 14 126/83 99 Room Air 97.9 Sp02 EP Interpretation: reviewed, normal General Appearance: no apparent distress, alert, GCS 15, non-toxic Head: normocephalic, atraumatic Eyes: bilateral eye normal inspection, bilateral eye PERRL ENT: hearing grossly normal, normal voice, nasal congestion Neck: full range of motion Respiratory: lungs clear, normal breath sounds, speaking full sentences Cardiovascular #1: regular rate, rhythm Musculoskeletal: back normal, gait/station normal, normal range of motion, non- tender Neurologic: alert, oriented x3, responsive, motor strength/tone normal, sensory intact, speech normal, grossly normal Psychiatric: judgement/insight normal Skin: normal color, no rash, warm/dry, well hydrated Lymphatic: no adenopathy Medical Decision Making PA Attestation Dr. Emanuel is my supervising Physician whom patient management has been discussed with. Diagnostic Impression: Primary Impression: Rhinitis Qualified Codes: J31.0 - Chronic rhinitis Additional Impression: Congestion of paranasal sinus ER Course Pt. presents to the ED c/o :Nasal congestion x 1 day after being under an AC vent for many hours. Ddx considered but are not limited to: Rhinitis, Nasal Congestion, FB, URI just to name a few. Vital signs: are WNL, pt. is afebrile H&PE are most consistent with: Rhinitis with nasal congestion ORDERS: None required at this time as the diagnosis is clinical ED INTERVENTIONS: none required at this time. DISCHARGE: At this time pt. is stable for d/c to home. Will provide printed patient care instructions, and any necessary prescriptions. Care plan and follow up instructions have been discussed with the patient prior to discharge. Last Vital Signs Date Time Temp Pulse Resp B/P (MAP) Pulse Ox O2 Delivery O2 Flow Rate FiO2 11/12/17 12:22 97.9 78 14 126/83 99 Room Air 97.9 Disposition: HOME, SELF-CARE Condition: Stable Scripts Cetirizine Hcl* (ZYRTEC*) 10 Mg Tablet 10 MG ORAL DAILY, #30 TAB 0 Refills Prov: Sue Chaidez 11/12/17 Oxymetazoline Hcl* (AFRIN*) 15 Ml Mist 2 SPRAYS NASAL TWICE A DAY for 3 Days, #15 ML 0 Refills DO NOT USE FOR MORE THAN 3 CONSECUTIVE DAYS. Prov: Sue Chaidez 11/12/17 Departure Forms: Return to Work Return to Work Date: Nov 14, 2017 Work Restrictions: None Return to Full Activity: Nov 14, 2017 Patient Instructions: Allergic Rhinitis Additional Instructions: Take medications as directed. !! DO NOT USE FOR MORE THAN 3 CONSECUTIVE DAYS. Follow up with a Primary Care Provider in 3-5 days, even if your symptoms have resolved. --Please review list of primary care clinics, if you do not already have a primary care provider Return sooner to ED if new symptoms occur, or current symptoms become worse. - Please note that this Emergency Department Report was dictated using [employer] import specialist technology software, occasionally this can lead to erroneous entry secondary to interpretation by the dictation equipment. Sue Chaidez Nov 12, 2017 12:36
[2017-11-12] MEDS ORDERED: AFRIN15 ML NASAL (12:46)
[2017-11-12] MEDS ORDERED: ZYRTEC10 MG ORAL (12:46)
[2017-11-12 12:54] VITALS: BP 126/83
== END 2017-11-12 12:54 | disposition home or self-care (01) ==
LOC: EMR 12:49
DX: J31.0 Chronic rhinitis (principal); R09.81 Nasal congestion; Z88.0 Allergy status to penicillin
CPT/HCPCS: 99283

== ENCOUNTER 2017-12-29 19:48 | Emergency (ER) | payer OTHER ==
[~2017-12-29] VITALS: Ht 162.6 cm; Wt 68.0 kg
[~2017-12-29 19:48] MED LIST changes: +AFRIN15 ML NASAL; +ZYRTEC10 MG ORAL
[2017-12-29] MEDS ORDERED: Ketorolac 60mg Inj IM ONE (20:30)
[2017-12-29 20:59] LABS: APPEARANCE,URINE CLEAR; BILIRUBIN, URINE NEGATIVE (NEGATIVE); COLOR,URINE PALE YELLOW; GLUCOSE, URINE (UA) NEGATIVE (NEGATIVE); KETONES,URINE 1+ (NEGATIVE); LEUKOCYTE ESTERASE ,URINE NEGATIVE (NEGATIVE); NITRITE,URINE NEGATIVE (NEGATIVE); PH,URINE 5 (4.5-8.0); PROTEIN,URINE NEGATIVE (NEGATIVE); UROBILINOGEN,URINE NORMAL MG/DL (0.0-1.0)
[2017-12-29 21:05] VITALS: BP 125/88
[2017-12-29] MEDS ORDERED: IBUPROFEN600 MG ORAL (21:41)
[2017-12-29] MEDS ORDERED: CYCLOBENZAPRINE10 MG ORAL (21:41)
[2017-12-29 22:01] VITALS: BP 125/88
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
--- NOTE | 2017-12-30 12:01 | Diagnostic Imaging Report ---
Indication: Back pain Comparison: None Findings: 2 views of the thoracic spine were obtained. Normal alignment is demonstrated. Vertebral body heights and intervertebral disc heights are normal. The posterior elements including the facets are unremarkable. Soft tissues are unremarkable. Impression: No acute injury appreciated.
--- NOTE | 2017-12-30 12:01 | Diagnostic Imaging Report ---
Indication: Back pain Comparison: None Findings: 3 views of the lumbar spine were obtained. No acute fracture or malalignment is identified. Vertebral body heights and disk spaces are well maintained. Posterior elements are unremarkable. Impression: No acute findings.
--- NOTE | 2017-12-30 12:02 | Diagnostic Imaging Report ---
Indication: Neck Pain Findings: 3 views of the cervical spine were obtained. There is no acute fracture identified. Alignment is normal. The open-mouth odontoid view shows an intact dens and good alignment of the lateral masses with respect to the body of C2. There is no soft tissue swelling. Impression: Negative cervical spine examination.
== END 2017-12-29 22:02 | disposition home or self-care (01) ==
LOC: EMR 20:41
DX: S13.9XXA Sprain of joints and ligaments of unspecified parts of neck, initial encounter (principal); S33.5XXA Sprain of ligaments of lumbar spine, initial encounter; S29.012A Strain of muscle and tendon of back wall of thorax, initial encounter; V43.52XA Car driver injured in collision with other type car in traffic accident, initial encounter; Y92.411 Interstate highway as the place of occurrence of the external cause; Z88.0 Allergy status to penicillin
CPT/HCPCS: 72020; 72050; 72070; 81003; 81025; 96372; 99284

== ENCOUNTER 2019-02-17 12:18 | Emergency (ER) | payer OTHER, MEDICAID ==
[~2019-02-17] VITALS: Ht 162.6 cm; Wt 71.7 kg
--- NOTE | 2019-02-17 12:40 | NUR ---
ED Nurse Note: Pt ambulated to ED with c/o vaginal discharge x 3 days. PT AOx4. Per pt d/c is clear in color. Denied pain, itchiness or any foul smell. Per pt she was dx with STD 2 days ago wc was treated already. Placed on bed.
[2019-02-17 12:45] VITALS: BP 140/84
--- NOTE | 2019-02-17 12:59 | NUR ---
ED Nurse Note: urine sent to lab.
--- NOTE | 2019-02-17 13:07 | NUR ---
ED Nurse Note: wet mount sent to lab
[2019-02-17 13:23] LABS: APPEARANCE,URINE CLOUDY; BILIRUBIN, URINE NEGATIVE (NEGATIVE); COLOR,URINE PALE YELLOW; GLUCOSE, URINE (UA) NEGATIVE (NEGATIVE); KETONES,URINE NEGATIVE (NEGATIVE); LEUKOCYTE ESTERASE ,URINE 3+ (NEGATIVE); NITRITE,URINE NEGATIVE (NEGATIVE); PH,URINE 7 (4.5-8.0); PROTEIN,URINE NEGATIVE (NEGATIVE); UROBILINOGEN,URINE NORMAL MG/DL (0.0-1.0)
--- NOTE | 2019-02-17 13:47 | Emergency Room Report ---
History of Present Illness General Chief Complaint: Female Urogenital Problems Source: Patient Present Illness HPI 28 YO female presents to the ED c/o vaginal d/c x 3 days. Denies pain, rashes, genital lesions, swollen tender lymph nodes, abdominal pain or tenderness or joint pain. She denies malodor she denies dysuria, hematuria or urinary frequency. Patient denies suspicion of STI she reports history of trichomonas in the past. Patient denies recent unprotected intercourse and she denies suspicion of . Denies fevers or chills. Denies vaginal bleeding. Patient denies recent antibiotic use no other aggravating or relieving factors. Allergies: Coded Allergies: PENICILLINS (Verified Allergy, rash, 08/28/12) Patient History Past Medical History: see triage record Past Surgical History: none Pertinent Family History: none Now: No Reviewed Nursing Documentation: PMH: Agreed; PSxH: Agreed Nursing Documentation-PMH Past Medical History: No Stated History Review of Systems All Other Systems: negative except mentioned in HPI Physical Exam Vital Signs Date Time Temp Pulse Resp B/P (MAP) Pulse Ox O2 Delivery O2 Flow Rate FiO2 02/17/19 12:38 97.9 80 16 138/92 (107) 99 Room Air Sp02 EP Interpretation: reviewed, normal General Appearance: no apparent distress, alert, GCS 15, non-toxic Head: normocephalic, atraumatic Eyes: bilateral eye normal inspection, bilateral eye PERRL ENT: hearing grossly normal, normal voice Neck: full range of motion Respiratory: lungs clear, normal breath sounds, speaking full sentences Cardiovascular #1: regular rate, rhythm Gastrointestinal: normal bowel sounds, non tender, soft, non-distended, no guarding Rectal: deferred Genitourinary: normal inspection, no CVA tenderness, adnexa normal, bladder normal, ext genitalia/vag normal, other - some non odorus white vaginal d/c in the vaginal vault. No CMT. no adnexal tenderness. Musculoskeletal: back normal, normal range of motion, gait/station normal, non- tender Neurologic: alert, motor strength/tone normal, oriented x3, sensory intact, responsive, speech normal Psychiatric: judgement/insight normal Skin: no rash, normal color, normal inspection Lymphatic: no adenopathy Medical Decision Making PA Attestation Dr. Hoyt Is my supervising Physician whom patient management has been discussed with. Diagnostic Impression: Primary Impression: UTI (urinary tract infection) Qualified Codes: N30.01 - Acute cystitis with hematuria ER Course 28 YO female presents to the ED c/o vaginal d/c x 3 days. Denies pain, rashes, genital lesions, swollen tender lymph nodes, abdominal pain or tenderness or joint pain. She denies malodor she denies dysuria, hematuria or urinary frequency. Patient denies suspicion of STI she reports history of trichomonas in the past. Patient denies recent unprotected intercourse and she denies suspicion of . Denies fevers or chills. Denies vaginal bleeding. Patient denies recent antibiotic use no other aggravating or relieving factors. Ddx considered but are not limited to UTi , Pyelo, STI, Stone, Cystitis Vital signs: are WNL, pt. is afebrile H&PE are most consistent with UTI ORDERS: - UA labs are attached - evidence of UTI- moderate bacteria and elevation in inflammatory markers. -[place]et [place] : Normal -Urine Hcg: Negative ED INTERVENTIONS: None required at this time. DISCHARGE: At this time pt. is stable for d/c to home. Will provide printed patient care instructions, and any necessary prescriptions. Care plan and follow up instructions have been discussed with the patient prior to discharge. Labs Test 02/17/19 12:56 Urine Color Pale yellow Urine Appearance Cloudy Urine pH 7 (4.5-8.0) Urine Specific [place] 1.005 (1.005-1.035) Urine Protein Negative (NEGATIVE) Urine Glucose (UA) Negative (NEGATIVE) Urine Ketones Negative (NEGATIVE) Urine Blood Negative (NEGATIVE) Urine Nitrite Negative (NEGATIVE) Urine Bilirubin Negative (NEGATIVE) Urine Urobilinogen Normal MG/DL (0.0-1.0) Urine Leukocyte Esterase 3+ (NEGATIVE) Urine RBC 2-4 /HPF (0 - 2) Urine WBC 15-20 /HPF (0 - 2) Urine Squamous Epithelial Cells Many /LPF (NONE/OCC) Urine Bacteria Moderate /HPF (NONE) Urine HCG, Qualitative Negative (NEGATIVE) Last Vital Signs Date Time Temp Pulse Resp B/P (MAP) Pulse Ox O2 Delivery O2 Flow Rate FiO2 02/17/19 12:45 98.1 85 18 140/84 100 Room Air Status: improved Disposition: HOME, SELF-CARE Condition: Stable Scripts Nitrofurantoin Monohyd/M-Cryst* (MACROBID 100 MG*) 100 Mg Capsule 100 MG ORAL EVERY 12 HOURS for 5 Days, #10 CAP Prov: Sue Chaidez 02/17/19 Patient Instructions: Urinary Tract Infection Additional Instructions: Take medications as directed. Follow up with a Primary Care Provider in 3-5 days, even if your symptoms have resolved. Return sooner to ED if new symptoms occur, or current symptoms become worse. - Please note that this Emergency Department Report was dictated using [employer] sales representative technology software, occasionally this can lead to erroneous entry secondary to interpretation by the dictation equipment. Sue Chaidez Feb 17, 2019 13:47
[2019-02-17] MEDS ORDERED: NITROFURANTOIN100 M2 ORAL (13:48)
[2019-02-17 14:09] VITALS: BP 139/86
--- NOTE | 2019-02-17 14:09 | NUR ---
ER DISCHARGE NOTE: Patient is cleared to be discharged per ERMD, pt is aox4, on room air, with stable vital signs. pt was given dc and prescription instructions, pt was able to verbalize understanding, pt id band removed. pt is able to ambulate with steady gait. pt took all belongings.
== END 2019-02-17 14:09 | disposition home or self-care (01) ==
LOC: EMR 13:45
DX: N30.00 Acute cystitis without hematuria (principal); Z88.0 Allergy status to penicillin
CPT/HCPCS: 81003; 81025; 87086; 87210; 99283

== ENCOUNTER 2019-12-24 13:48 | Emergency (ER) | payer OTHER, MEDICAID ==
[~2019-12-24] VITALS: Ht 162.6 cm; Wt 68.0 kg
[2019-12-24 14:11] VITALS: BP 132/85
--- NOTE | 2019-12-24 14:25 | Emergency Room Report ---
History of Present Illness General Chief Complaint: Vaginal Source: Patient Present Illness HPI 29 YO female presents to the ED c/o white vaginal discharge x9 days. Patient reports initially white milky in character however she states the discharge over the past 4 days has began to thicken and has some yellowish color. And an odor. Patient denies pain. She denies vaginal bleeding. She denies genital lesions or sores. She denies rashes. Patient denies suspicion of STI. Patient reports she did have trichomonas in the past which presented differently. Patient denies . Patient reports she did have unprotected intercourse approximately 2 weeks ago but with unknown partner. She denies dysuria, hematuria, urinary frequency or urgency. She denies abdominal pain/tenderness, nausea or vomiting. Patient denies fevers or chills. She denies swollen tender lymph nodes or joint pain. 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 COVID-19 Screening: Negative COVID-19 COVID-19 Testing Source: 2 days ago Patient History Past Medical History: see triage record Past Surgical History: none Pertinent Family History: none Last Menstrual Period: 12/12/19 Now: No Reviewed Nursing Documentation: PMH: Agreed; PSxH: Agreed Nursing Documentation-PMH Past Medical History: No Stated History Review of Systems All Other Systems: negative except mentioned in HPI Physical Exam Vital Signs Date Time Temp Pulse Resp B/P (MAP) Pulse Ox O2 Delivery O2 Flow Rate FiO2 12/24/19 13:51 98.6 92 20 134/87 (103) 97 Room Air Sp02 EP Interpretation: reviewed, normal General Appearance: no apparent distress, alert, GCS 15, non-toxic Head: normocephalic, atraumatic Eyes: bilateral eye normal inspection, bilateral eye PERRL ENT: hearing grossly normal, normal voice Neck: full range of motion Respiratory: lungs clear, normal breath sounds, speaking full sentences Cardiovascular #1: regular rate, rhythm Gastrointestinal: normal bowel sounds, non tender, soft, non-distended, no guarding Rectal: deferred Genitourinary: normal inspection, no CVA tenderness, adnexa normal, cervix normal, ext genitalia/vag normal, other - no rashes or sores. Milky white discharge noted in the vaginal vault. No CMT. normal appearing cervix Musculoskeletal: normal range of motion, gait/station normal, non-tender Neurologic: alert, motor strength/tone normal, oriented x3, sensory intact, responsive, speech normal Psychiatric: judgement/insight normal Skin: no rash, normal color Lymphatic: no adenopathy Medical Decision Making PA Attestation Dr. Burnham is my supervising Physician whom patient management has been discussed with. Diagnostic Impression: Primary Impression: Bacterial vaginosis ER Course 29 YO female presents to the ED c/o white vaginal discharge x9 days. Patient reports initially white milky in character however she states the discharge over the past 4 days has began to thicken and has some yellowish color. And an odor. Patient denies pain. She denies vaginal bleeding. She denies genital lesions or sores. She denies rashes. Patient denies suspicion of STI. Patient reports she did have trichomonas in the past which presented differently. Patient denies . Patient reports she did have unprotected intercourse ap proximately 2 weeks ago but with unknown partner. She denies dysuria, hematuria, urinary frequency or urgency. She denies abdominal pain/tenderness, nausea or vomiting. Patient denies fevers or chills. She denies swollen tender lymph nodes or joint pain. Ddx considered but are not limited to UTi , Pyelo, STI, Stone, Cystitis, vaginal laceration, vaginitis. Vital signs: are WNL, pt. is afebrile H& PE are most consistent with: Vaginitis ORDERS: - Urine Hcg: negative - [place] : few clue cells--c/w BV ED INTERVENTIONS: -I do not identify an emergent condition at this time. With current presentation, pt. is stable for close outpatient follow up and conservative treatment. D/w pt. to return promptly to ED with worsening or new symptoms.- Pt. verbalizes' understanding and agreement with proposed treatment plan. DISCHARGE: At this time pt. is stable for d/c to home. Will provide printed patient care instructions, and any necessary prescriptions. Care plan and follow up instructions have been discussed with the patient prior to discharge. discussed with the patient prior to discharge. Labs Test 12/24/19 14:00 Urine HCG, Qualitative Negative (NEGATIVE) Last Vital Signs Date Time Temp Pulse Resp B/P (MAP) Pulse Ox O2 Delivery O2 Flow Rate FiO2 12/24/19 14:11 98.6 17 132/85 99 Room Air 12/24/19 13:51 92 Status: improved Disposition: HOME, SELF-CARE Condition: Stable Scripts Metronidazole* (FLAGYL*) 500 Mg Tablet 500 MG ORAL BID for 7 Days, #14 TAB Prov: Sue Chaidez 12/24/19 Patient Instructions: Bacterial Vaginosis, [id number] Additional Instructions: Take medications as directed. Follow up with a Primary Care Provider in 3-5 days, even if your symptoms have resolved. Return sooner to ED if new symptoms occur, or current symptoms become worse. - Please note that this Emergency Department Report was dictated using [employer] help desk specialist technology software, occasionally this can lead to erroneous entry secondary to interpretation by the dictation equipment. Sue Chaidez Dec 24, 2019 14:25
[2019-12-24] MEDS ORDERED: METRONIDAZOLE500 MG ORAL (15:27)
[2019-12-24 15:51] VITALS: BP 143/80
== END 2019-12-24 15:53 | disposition home or self-care (01) ==
LOC: EMR 14:58
DX: N76.0 Acute vaginitis (principal); Z88.0 Allergy status to penicillin
CPT/HCPCS: 81025; 87210; 99283